=== PATIENT | female | born 1995 | race Caucasian/White ===

== ENCOUNTER → 2017-07-06 | Outpatient (CLI) | payer MEDICAID | END | disposition home or self-care (01) | LOC: RAD 16:19 | DX: N83.8 Other noninflammatory disorders of ovary, fallopian tube and broad ligament (principal) | CPT/HCPCS: 76830 ==

== ENCOUNTER 2017-09-23 18:11 | Emergency (ER) | payer MEDICAID ==
[~2017-09-23] VITALS: Ht 160 cm; Wt 61.2 kg
[2017-09-23] MEDS ORDERED: LAMO200T3 PO (18:29)
[2017-09-23 19:22] LABS: BASOPHILS # (AUTO) 0.02 x10^3/uL (0-0.1); BASOPHILS % (AUTO) 0 % (0-1); EOSINOPHILS # (AUTO) 0.07 x10^3/uL (0-0.4); EOSINOPHILS % (AUTO) 1 % (1-7); LYMPHOCYTES # (AUTO) 1.74 x10^3/uL (1-3.4); LYMPHOCYTES % (AUTO) 29 % (22-44); MD NO; MEAN CORPUSCULAR HEMOGLOBIN 33.2 pg (27.0-34.8); MEAN CORPUSCULAR HGB CONC 34.8 g/dL (32.4-35.8); MEAN CORPUSCULAR VOLUME 95.3 fL (80-100); MEAN PLATELET VOLUME 9.6 fL (7.4-10.4); MONOCYTES # (AUTO) 0.51 x10^3/uL (0.2-0.8); MONOCYTES % (AUTO) 9 % (2-9); NEUTROPHILS # (AUTO) 3.62 x10^3/uL (1.8-6.8); NEUTROPHILS % (AUTO) 61 % (42-75); PLATELET COUNT 169 x10^3/uL (130-400); RED BLOOD COUNT 4.18 x10^6/uL (3.82-5.3); RED CELL DISTRIBUTION WIDTH 12.2 % (9.6-15.2)
[2017-09-23 19:31] LABS: ANION GAP 7 mmol/L (5-15); CALCIUM 8.2 mg/dL (8.5-10.1); CHLORIDE 110 mmol/L (98-107); CREATININE 1.14 mg/dL (0.55-1.02)
[2017-09-23 19:32] LABS: MICROSCOPIC INDICATED
[2017-09-23 19:38] LABS: CULTURE INDICATED? NO
[2017-09-23 20:28] VITALS: BP 107/76
== END 2017-09-23 20:30 | disposition home or self-care (01) ==
LOC: ED 20:20
DX: R10.31 Right lower quadrant pain (principal)
CPT/HCPCS: 36415; 76830; 80048; 81001; 82040; 84703; 85025; 99285

== ENCOUNTER 2018-03-01 20:24 | Outpatient (CLI) | payer MEDICAID ==
[~2018-03-01] VITALS: Ht 160 cm; Wt 72.7 kg
[~2018-03-01 20:24] MED LIST: LAMO200T3 PO
[2018-03-01] MEDS ORDERED: PREN-59 PO (20:46)
[2018-03-01 20:48] LABS: MICROSCOPIC NOT IND
[2018-03-01] MEDS ORDERED: TERBUTALINE 1 MG/ML, 1ML ONE (20:58)
[2018-03-01] MEDS ORDERED: TERBUTALINE 1 MG/ML, 1ML IV ONE (21:30)
[2018-03-01] MEDS ORDERED: LACTATED RINGERS 1,000 ML IV SCH (23:20)
== END 2018-03-01 23:36 | disposition home or self-care (01) ==
LOC: LDOP 20:24
PROVIDERS: ATTEND Student in an Organized Health Care Education/Training Program
DX: O26.892 Other specified pregnancy related conditions, second trimester (principal); R10.9 Unspecified abdominal pain; Z3A.26 26 weeks gestation of pregnancy
CPT/HCPCS: 36415; 59025; 81003; 82731; 87086; 96360; 96372; 99211; J3105; J7120; G0463

== ENCOUNTER 2018-03-13 15:07 | Outpatient (CLI) | payer MEDICAID ==
[~2018-03-13 15:07] MED LIST changes: +PREN-59 PO
[2018-03-13 16:19] LABS: MICROSCOPIC INDICATED
== END 2018-03-13 17:31 | disposition home or self-care (01) ==
LOC: LDOP 15:07
PROVIDERS: ATTEND Student in an Organized Health Care Education/Training Program
DX: O42.913 Preterm premature rupture of membranes, unspecified as to length of time between rupture and onset of labor, third trimester (principal); Z3A.28 28 weeks gestation of pregnancy
CPT/HCPCS: 59025; 81001; 84112; 87086; 99211; G0463

== ENCOUNTER 2018-04-28 21:23 | Outpatient (CLI) | payer MEDICAID ==
[~2018-04-28] VITALS: Ht 162.6 cm; Wt 79.1 kg
== END 2018-04-28 22:23 | disposition home or self-care (01) ==
LOC: LDOP 21:23
PROVIDERS: ATTEND Student in an Organized Health Care Education/Training Program
DX: O36.8130 Decreased fetal movements, third trimester, not applicable or unspecified (principal); O42.913 Preterm premature rupture of membranes, unspecified as to length of time between rupture and onset of labor, third trimester; Z3A.34 34 weeks gestation of pregnancy
CPT/HCPCS: 59025; 89060; 99211; G0463; Q0114

== ENCOUNTER 2018-05-01 16:21 | Outpatient (CLI) | payer MEDICAID ==
[2018-05-01 17:23] LABS: MICROSCOPIC NOT IND
== END 2018-05-01 18:23 | disposition home or self-care (01) ==
LOC: LDOP 16:21 → UNDOADMOB 16:55 → LDIP 16:55 → LDOP 18:23
PROVIDERS: ATTEND Student in an Organized Health Care Education/Training Program
DX: O62.9 Abnormality of forces of labor, unspecified (principal); O26.893 Other specified pregnancy related conditions, third trimester; R10.9 Unspecified abdominal pain; Z3A.35 35 weeks gestation of pregnancy
CPT/HCPCS: 59025; 81003; 87086; 99211; G0463

== ENCOUNTER 2018-05-16 15:54 | Outpatient (CLI) | payer MEDICAID ==
[~2018-05-16] VITALS: Ht 162.6 cm; Wt 80.9 kg
[2018-05-16 16:27] VITALS: BP 134/84
[2018-05-16 17:20] LABS: AMPHETAMINE SCREEN, URINE Negative (Negative); BARBITURATE SCREEN, URINE Negative (Negative); BENZODIAZEPINE SCREEN, URINE Negative (Negative); CANNABINOID SCREEN, URINE Negative (Negative); COCAINE SCREEN, URINE Negative (Negative); METHADONE SCREEN, URINE Negative (Negative); OPIATE SCREEN, URINE Negative (Negative)
[2018-05-16 17:27] LABS: MICROSCOPIC INDICATED
== END 2018-05-16 18:16 | disposition home or self-care (01) ==
LOC: LDOP 15:54
PROVIDERS: ATTEND Student in an Organized Health Care Education/Training Program
DX: O26.893 Other specified pregnancy related conditions, third trimester (principal); Z3A.37 37 weeks gestation of pregnancy; R10.9 Unspecified abdominal pain
CPT/HCPCS: 59025; 80307; 81001; 87086; 99211; G0463

== ENCOUNTER 2018-05-30 08:14 | Inpatient (IN) | payer MEDICAID ==
[~2018-05-30] VITALS: Ht 162.6 cm; Wt 83.1 kg
[2018-05-30] MEDS ORDERED: OXYTOCIN 30U/ 0.9% NaCL 500ML 500 ML IV ONE (08:29)
[2018-05-30] MEDS ORDERED: FENTANYL PF 100 MCG/2ML IVPush PRN (08:30)
[2018-05-30] MEDS ORDERED: ONDANSETRON 2MG/ML, 2ML IVPush PRN ×2 (08:30→14:30)
[2018-05-30] MEDS ORDERED: FENTANYL PF 100 MCG/2ML IV PRN (08:30)
[2018-05-30] MEDS ORDERED: FENTANYL PF 100 MCG/2ML ONE ×2 (08:32→09:11)
[2018-05-30] MEDS ORDERED: OXYTOCIN 30U/ 0.9% NaCL 500ML 500 ML ONE ×2 (08:33→15:48)
[2018-05-30] MEDS: LACTATED RINGERS 1,000 ML IV SCH ×2 (08:42→09:07)
[2018-05-30] MEDS ORDERED: ONDANSETRON 2MG/ML, 2ML ONE (08:56)
[2018-05-30 08:59] VITALS: BP 128/75
[2018-05-30 09:00] LABS: BASOPHILS # (AUTO) 0.06 x10^3/uL (0-0.1); BASOPHILS % (AUTO) 1 % (0-1); EOSINOPHILS # (AUTO) 0.06 x10^3/uL (0-0.4); EOSINOPHILS % (AUTO) 1 % (1-7); LYMPHOCYTES % (AUTO) 22 % (22-44); MD NO; MEAN CORPUSCULAR HEMOGLOBIN 33.9 pg (27.0-34.8); MEAN CORPUSCULAR HGB CONC 34.2 g/dL (32.4-35.8); MEAN PLATELET VOLUME 10.6 fL (7.4-10.4); MONOCYTES % (AUTO) 6 % (2-9); NEUTROPHILS # (AUTO) 6.11 x10^3/uL (1.8-6.8); NEUTROPHILS % (AUTO) 71 % (42-75); PLATELET COUNT 130 x10^3/uL (130-400); RED BLOOD COUNT 3.88 x10^6/uL (3.82-5.3); RED CELL DISTRIBUTION WIDTH 12.4 % (9.6-15.2)
[2018-05-30] MEDS ORDERED: FENTANYL/BUPIV./NS/PF 250 ML EPIDCONT SCH ×2 (09:10→14:20)
[2018-05-30] MEDS ORDERED: BUPIVACAINE 0.25% ONE (09:11)
[2018-05-30] MEDS ORDERED: NEWBORN KIT ONE (09:25)
[2018-05-30] MEDS ORDERED: FENTANYL PF 500 MCG, BUPIVACAINE/PF 0.5%, 30ML 62.5 ML in SODIUM CHLORIDE 0.9% 177.5 ML EPIDCONT SCH (09:30)
[2018-05-30] MEDS ORDERED: OXYTOCIN 30U/ 0.9% NaCL 500ML 500 ML IV PRN (10:38)
[2018-05-30] MEDS ORDERED: LACTATED RINGERS 1,000 ML IV SCH (14:20)
[2018-05-30] MEDS ORDERED: LIDOCAINE/PF 1%, 30ML ONE (14:22)
[2018-05-30] MEDS ORDERED: MISOPROSTOL 200 MCG TABLET ONE (14:23)
[2018-05-30] MEDS ORDERED: LACTATED RINGERS 1,000 ML IVBOLUS PRN (14:30)
[2018-05-30] MEDS ORDERED: EPHEDRINE 50 MG/ML, 1ML IVPush PRN (14:30)
[2018-05-30] MEDS ORDERED: IBUPROFEN 600 MG TABLET ONE (15:08)
[2018-05-30] MEDS ORDERED: OXYcodone/APAP 5/325MG TABLET ONE (15:09)
[2018-05-30] MEDS: OXYTOCIN 30U/ 0.9% NaCL 500ML 500 ML IV SCH (15:26)
[2018-05-30] MEDS ORDERED: DIPH,PERTUSS(ACELL),TET VAC/PF NC IM-VACC PRN (15:30)
[2018-05-30] MEDS ORDERED: RHOGAM FROM BLOOD BANK 1 NOTE EA IM/IV ONE (15:30)
[2018-05-30] MEDS ORDERED: OXYcodone/APAP 5/325MG TABLET PO ONE (15:30)
[2018-05-30] MEDS ORDERED: CARBOPROST TROMETHAMINE 250 MCG/ML, 1ML IM PRN (15:30)
[2018-05-30] MEDS ORDERED: ACETAMINOPHEN 325 MG TABLET PO PRN (15:30)
[2018-05-30] MEDS ORDERED: MISOPROSTOL 200 MCG TABLET PR PRN (15:30)
[2018-05-30] MEDS ORDERED: IBUPROFEN 600 MG TABLET PO PRN (15:30)
[2018-05-30] MEDS ORDERED: IBUPROFEN 200 MG TABLET PO PRN (15:30)
[2018-05-30] MEDS ORDERED: MEASLES,MUMPS&RUBELLA VACC/PF 0.5 ML SQ PRN (15:30)
[2018-05-30] MEDS ORDERED: METHYLERGONOVINE 0.2 MG/ML IM PRN (15:30)
[2018-05-30 17:00] VITALS: BP 132/76
[2018-05-30 20:50] VITALS: BP 108/68
[2018-05-30] MEDS: IBUPROFEN 600 MG TABLET PO PRN (21:12)
[2018-05-30] MEDS: DOCUSATE 100 MG CAPSULE PO PRN (21:12)
[2018-05-31 00:05] VITALS: BP 120/74
[2018-05-31] MEDS: OXYTOCIN 30U/ 0.9% NaCL 500ML 500 ML IV SCH (01:26)
[2018-05-31 04:30] VITALS: BP 94/59
[2018-05-31] MEDS: IBUPROFEN 600 MG TABLET PO PRN ×2 (04:44→11:19)
[2018-05-31 05:24] LABS: BASOPHILS # (AUTO) 0.03 x10^3/uL (0-0.1); BASOPHILS % (AUTO) 0 % (0-1); EOSINOPHILS # (AUTO) 0.07 x10^3/uL (0-0.4); EOSINOPHILS % (AUTO) 1 % (1-7); LYMPHOCYTES # (AUTO) 1.91 x10^3/uL (1-3.4); LYMPHOCYTES % (AUTO) 23 % (22-44); MD NO; MEAN CORPUSCULAR HEMOGLOBIN 33.9 pg (27.0-34.8); MEAN CORPUSCULAR HGB CONC 34.1 g/dL (32.4-35.8); MEAN CORPUSCULAR VOLUME 99.4 fL (80-100); MEAN PLATELET VOLUME 11.6 fL (7.4-10.4); MONOCYTES % (AUTO) 5 % (2-9); NEUTROPHILS # (AUTO) 5.97 x10^3/uL (1.8-6.8); NEUTROPHILS % (AUTO) 71 % (42-75); PLATELET COUNT 116 x10^3/uL (130-400); RED BLOOD COUNT 3.67 x10^6/uL (3.82-5.3); RED CELL DISTRIBUTION WIDTH 12.6 % (9.6-15.2)
[2018-05-31 07:15] VITALS: BP 112/76
[2018-05-31] MEDS ORDERED: IBUP-1222 PO (07:49)
[2018-05-31] MEDS: DOCUSATE 100 MG CAPSULE PO PRN (07:53)
[2018-05-31] MEDS: OXYcodone/APAP 5/325MG TABLET PO PRN ×2 (07:53→12:45)
[2018-05-31] MEDS ORDERED: PRENATAL VIT/IRON/FA 1 EACH TABLET PO SCH (09:00)
[2018-05-31 12:47] VITALS: BP 128/82
== END 2018-05-31 13:15 | disposition home or self-care (01) | DRG 807 ==
LOC: LDOP 08:14 → LDIP 08:40 → 2NW 16:32
PROVIDERS: ADMIT Student in an Organized Health Care Education/Training Program; ATTEND Student in an Organized Health Care Education/Training Program
PROC: 10E0XZZ Delivery of Products of Conception, External Approach (ICD-10-PCS; principal; 2018-05-30)
PROC: 3E0R3BZ Introduction of Anesthetic Agent into Spinal Canal, Percutaneous Approach (ICD-10-PCS; 2018-05-30)
PROC: 00HU33Z Insertion of Infusion Device into Spinal Canal, Percutaneous Approach (ICD-10-PCS; 2018-05-30)
DX: O80 Encounter for full-term uncomplicated delivery (principal); Z37.0 Single live birth; Z3A.39 39 weeks gestation of pregnancy
CPT/HCPCS: 36415; 85025; 86850; 86900; G0378; J2405; J3010; J3490; J2590; J7050; J7120